=== PATIENT | female | born 1985 | race Caucasian/White ===

== ENCOUNTER 2017-10-30 21:02 | Emergency (ER) | payer OTHER ==
[~2017-10-30] VITALS: Ht 167.6 cm; Wt 54.4 kg
== END 2017-10-30 22:42 | disposition home or self-care (01) ==
LOC: ER 21:02
DX: S60.571A Other superficial bite of hand of right hand, initial encounter (principal); W55.01XA Bitten by cat, initial encounter; Y93.89 Activity, other specified; Y92.89 Other specified places as the place of occurrence of the external cause; Y99.8 Other external cause status

== ENCOUNTER 2018-02-11 20:05 | Emergency (ER) | payer OTHER ==
[~2018-02-11] VITALS: Ht 167.6 cm; Wt 54.4 kg
[2018-02-12] MEDS ORDERED: KETO10TA2 PO (01:46)
== END 2018-02-12 02:00 | disposition home or self-care (01) ==
LOC: ER 20:05
DX: S00.83XA Contusion of other part of head, initial encounter (principal); W22.8XXA Striking against or struck by other objects, initial encounter; Y93.89 Activity, other specified; Y92.098 Other place in other non-institutional residence as the place of occurrence of the external cause; Y99.8 Other external cause status

== ENCOUNTER 2021-08-21 13:20 | Emergency (ER) | payer OTHER ==
[~2021-08-21] VITALS: Ht 167.6 cm; Wt 54.4 kg
[~2021-08-21 13:20] MED LIST: KETO10TA2 PO
== END 2021-08-21 22:34 | disposition home or self-care (01) ==
LOC: ER 13:20
DX: S93.401A Sprain of unspecified ligament of right ankle, initial encounter (principal); X58.XXXA Exposure to other specified factors, initial encounter; Y93.9 Activity, unspecified; Y92.9 Unspecified place or not applicable; Y99.9 Unspecified external cause status

== ENCOUNTER 2022-09-19 17:24 | Emergency (ER) | payer OTHER ==
[~2022-09-19] VITALS: Ht 167.6 cm; Wt 54.4 kg
== END 2022-09-19 20:48 | disposition home or self-care (01) ==
LOC: ER 17:24
DX: Z48.02 Encounter for removal of sutures (principal)

== ENCOUNTER 2025-01-07 10:29 | Outpatient (CLI) | payer OTHER | END 2025-01-07 10:33 | disposition home or self-care (01) | LOC: SONOGRAMA 10:29 | DX: N84.0 Polyp of corpus uteri (principal) ==